=== PATIENT | male | born 1970 | race Caucasian/White ===

== ENCOUNTER 2019-10-12 10:37 | Day surgery (SDC) | payer OTHER ==
[~2019-10-12 10:37] MED LIST: Buffered Lidocaine 1% SYRIN* 1 ML/SYRINGE INTRADERM ONE; Lactated Ringers 1000 ML Bag* 1,000 ML IV SCH
[2019-10-12] MEDS ORDERED: ceFAZolin 2 GM in NS PREMIX(*) 2 GM/100 ML BAG IVPB ONE (10:56)
[2019-10-12] MEDS ORDERED: Buffered Lidocaine 1% SYRIN* 1 ML/SYRINGE INTRADERM ONE ×2 (10:56→11:22)
[2019-10-12] MEDS ORDERED: Ondansetron INJ* 2 MG/ML VIAL ONE ×3 (11:16→15:23)
[2019-10-12] MEDS ORDERED: Propofol* 10 MG/ML 20 ML BTL ONE (11:16)
[2019-10-12] MEDS ORDERED: Ketorolac INJ* 30 MG/ML 1 ML VIAL ONE ×3 (11:16→15:23)
[2019-10-12] MEDS ORDERED: Dexamethasone IV* 4 MG/ML 1 ML (4 MG) ONE ×3 (11:16→15:23)
[2019-10-12] MEDS ORDERED: Metoclopramide IV* 5 MG/ML 2 ML VIAL ONE ×3 (11:16→15:23)
[2019-10-12] MEDS ORDERED: Lidocaine 2% PF * 5 ML VIAL ONE (11:16)
[2019-10-12] MEDS ORDERED: Midazolam* 1 MG/ML 2 ML VIAL (2 MG) ONE (12:06)
[2019-10-12] MEDS ORDERED: fentaNYL* 50 MCG/ML 2 ML VIAL (100 MCG VIAL) ONE (12:06)
[2019-10-12] MEDS ORDERED: Bupivacaine 0.5%* 50 ML MDV VIAL ONE (12:20)
[2019-10-12] MEDS ORDERED: EPHEDrine (Pressors)* 50 MG/ML VIAL ONE (13:01)
[2019-10-12] MEDS ORDERED: fentaNYL* 50 MCG/ML 2 ML VIAL (100 MCG VIAL) IV PRN (13:31)
[2019-10-12] MEDS ORDERED: Acetaminophen TAB* 325 MG PO PRN (13:31)
[2019-10-12] MEDS ORDERED: DiMENhydriNATE IV* 50 MG/ML VIAL IV PUSH PRN (13:31)
[2019-10-12] MEDS ORDERED: Naloxone* 0.4 MG/ML 1 ML VIAL IV PRN (13:31)
--- NOTE | 2019-10-12 14:22 | OP ---
Operative Report - Blank - Operative Report Date of Operation: 10/12/19 Note: PATIENT: Dao Sommer DATE OF : 1970 DATE OF SURGERY: 10/12/2019 SURGEON: Jose Colvin MD MACHINE PACKER: TAL Wei, whos assistance was necessary for positioning, retraction, help with instrumentation, and closure. ANESTHESIOLOGIST: Dr. 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 Right ankle anterior impingement with distal tibia osteophytes. POSTOPERATIVE DIAGNOSIS: Right ankle synovitis and osteochondral lesion of the talus. Right ankle anterior impingement with distal tibia osteophytes. OPERATION: 1. Right ankle arthroscopy with extensive debridement. 2. Right ankle curettage and microfracture of talar osteochondral lesion. 3. Right ankle excision of distal tibial osteophytes/saucerization. ANESTHESIA: General IMPLANTS: none TOURNIQUET TIME: Less than one hour, with a well-padded thigh tourniquet at 250 mmHg SPECIMENS: none ESTIMATED BLOOD LOSS: minimal COMPLICATIONS: none STATUS: Stable from the operating room to the recovery room and then home. INDICATIONS FOR PROCEDURE: Dao has had persistent right ankle pain. He has had 2 prior surgeries on the right ankle. He does not have ankle instability. Both operative and non operative treatment alternatives were reviewed. Further, the nature and risks of surgery were reviewed in careful detail, in the office as well as the pre- operative holding area. Our discussions regarding the risks of surgery included , but were not limited to, infection, wound problems, nerve injury, neuroma, RSD , persistent symptoms, blood clot, failure of the surgery, need for further surgery, and even the remote chance of catastrophic complication. DESCRIPTION OF PROCEDURE: The patient was seen in the preoperative holding unit and informed written consent was obtained. The appropriate extremity was marked. The patient was then brought to the operating room and carefully positioned on the operating room table. Anesthesia was induced. All bony prominences were padded with great care. A chlorhexidine based pre-scrub was performed followed by a chloraprep prep and drape in standard sterile fashion. A surgical safety pause was then conducted in which we confirmed the appropriate patient, extremity, planned procedure, availability of equipment, indication and administration of prophylactic antibiotics, and DVT prophylaxis in the form of a compression boot on the non-surgical extremity. An Esmarch exsanguination of the limb was then performed and the tourniquet inflated. The leg was positioned in the noninvasive ankle arthroscopy leg nair setup. I began by establishing the anteromedial portal. I utilized a spinal needle for this. Great care was taken to protect the superficial neurovascular structures. Under direct visualization, I then established an anterolateral portal. Great care was taken to protect the superficial peroneal nerve. I utilized the full radius shaver to remove a considerable amount of synovitis from the anterior aspect of the ankle joint. This was carefully removed to give a nice view of the ankle joint. There was an osteochondral lesion of the talus at the lateral talar dome. There were no additional chondral lesions appreciated. At this point, I utilized a ringed curette to remove loose debris from within the osteochondral lesion. This was curetted back to a stable rim around the perimeter of lesion, which measured 14 mm A to P. The calcified cartilage layer was then removed. I then utilized the microfracture awl to microfracture the lesion. There was healthy bleeding from the subchondral bone. I then turned my attention to the anterior impingement of the ankle joint. The anterior aspect of the distal tibia was exposed using the shaver. This revealed a protruding osteophyte at the lateral aspect of the distal tibia. A 4 mm arthroscopic migdalia was utilized to migdalia down the osteophyte perform a distal tibia saucerization. I then again utilized the full radius shaver to remove all additional debris from the ankle joint. I removed the arthroscopic equipment and closed the portals utilizing 3-0 nylon suture. At this point, a sterile dressing was applied and the ankle was splinted in a neutral position. The patient was then awakened from anesthesia and transferred to the recovery room in stable condition. There were no complications. All needle and sponge counts were correct at the end of the case. ATTESTATION: I attest I was present and scrubbed and performed the critical portions of the procedure myself. POSTOPERATIVE PLAN: The plan is to remain nonweightbearing for an anticipated duration of 2 weeks. Follow up will be in two weeks for likely suture removal, Steri-Strip application and transition into a tall Aircast boot. The patient may begin gentle active dorsiflexion and plantarflexion of the ankle beginning two weeks postoperatively. He'll be partial weightbearing for weeks 2-4 postoperatively, and initiate weightbearing as tolerated one month postoperatively.
[2019-10-12 15:02] VITALS: BP 134/82
== END 2019-10-12 14:55 | disposition home or self-care (01) ==
LOC: OR 10:37
PROVIDERS: ATTEND Orthopaedic Surgery
DX: M93.271 Osteochondritis dissecans, right ankle and joints of right foot (principal); M25.771 Osteophyte, right ankle
CPT/HCPCS: J0690; J1100; J1885; J2250; J2405; J2704; J2765; J3010; J3490